=== PATIENT | male | born 2000 | race Caucasian/White ===

== ENCOUNTER 2018-04-25 16:36 | Emergency (ER) | payer MEDICAID ==
[~2018-04-25] VITALS: Ht 185.4 cm; Wt 77.2 kg
[2018-04-25 18:03] LABS: URINE AMPHETAMINE SCREEN NEGATIVE (Neg); URINE BARBITUATE SCREEN NEGATIVE (Neg); URINE BENZODIAZEPINES SCREEN POSITIVE (Neg); URINE CANNABINOID SCREEN NEGATIVE (Neg); URINE COCAINE SCREEN NEGATIVE (Neg); URINE METHADONE SCREEN NEGATIVE (Neg); URINE OPIATE SCREEN NEGATIVE (Neg); URINE PHENCYCLIDINE SCREEN NEGATIVE (Neg)
[2018-04-25 18:14] LABS: BASOPHILS % (AUTO) 0.3 % (0-1); EOSINOPHILS # (AUTO) 0.1 X10'3 (0-0.9); EOSINOPHILS % (AUTO) 1.3 % (0-6); HEMATOCRIT 44.1 % (42.0-52.0); HEMOGLOBIN 15.1 g/dl (14.0-17.9); LYMPHOCYTES # (AUTO) 1.6 X10'3 (1.1-4.8); LYMPHOCYTES % (AUTO) 26.5 % (21-51); MEAN CORPUSCULAR HGB CONC 34.2 % (33.0-36.5); MEAN CORPUSCULAR VOLUME 87.7 FL (78-98); MEAN PLATELET VOLUME 9.3 FL (7.4-10.4); MONOCYTES # (AUTO) 0.5 X10'3 (0-0.9); MONOCYTES % (AUTO) 7.8 % (2-12); NEUTROPHILS # (AUTO) 3.8 X10'3 (1.8-7.7); NEUTROPHILS % (AUTO) 64.1 % (42-75); PLATELET COUNT 208 X10'3 (140-440); RED BLOOD COUNT 5.03 X10'6 (4.70-6.10); RED CELL DISTRIBUTION WIDTH 13.7 % (11.5-14.5)
[2018-04-25 18:34] LABS: ALANINE AMINOTRANSFERASE 40 U/L (12-78); ALBUMIN 4.2 G/DL (3.4-5.0); ALBUMIN/GLOBULIN RATIO 1.1 (1.1-1.5); ALKALINE PHOSPHATASE 138 IU/L (20-180); ANION GAP 9 (8-16); ASPARTATE AMINO TRANSFERASE 34 U/L (10-37); BILIRUBIN,TOTAL 0.3 MG/DL (0.1-1.0); BLOOD UREA NITROGEN 13 MG/DL (7-18); BUN/CREATININE RATIO 14.9 (5.4-32.0); CALCIUM 8.8 MG/DL (8.5-10.1); CHLORIDE 106 MMOL/L (99-107); CREATININE 0.87 MG/DL (0.60-1.10); GLUCOSE 98 MG/DL (70-104); POTASSIUM 4.1 MMOL/L (3.5-5.1); SODIUM 143 MMOL/L (135-145); TOTAL CARBON DIOXIDE 28.1 MMOL/L (24-32); TOTAL PROTEIN 7.9 G/DL (6.4-8.2); eGFR > 90 ML/MIN
[2018-04-25 18:44] LABS: ETHANOL < 0.010 GM/DL (0.0-0.010)
[2018-04-25 19:03] LABS: ACETAMINOPHEN < 2.0 UG/ML (10-30)
[2018-04-25] MEDS ORDERED: OLAN5TAB3 PO (20:11)
[2018-04-25] MEDS ORDERED: ZOL50T PO (20:13)
[2018-04-25] MEDS: OLANZapine 2.5MG tablet PO SCH (21:25)
[2018-04-25] MEDS ORDERED: QUEtiapine 25mg tablet PO ONE (22:10)
[2018-04-26] MEDS: sertraline 50mg tablet PO SCH (08:08)
[2018-04-26] MEDS ORDERED: LORazepam 0.5 MG tablet PO ONE (12:05)
[2018-04-26] MEDS ORDERED: ibuprofen 200mg tablet PO ONE (19:30)
[2018-04-26] MEDS: OLANZapine 2.5MG tablet PO SCH ×2 (21:00→21:02)
[2018-04-27] MEDS: sertraline 50mg tablet PO SCH (08:00)
[2018-04-27] MEDS ORDERED: QUEtiapine 25mg tablet PO ONE (08:45)
[2018-04-27 10:28] LABS: CLARITY,URINE SLIGHTLY CLOUDY (Clear); COLOR,URINE YELLOW (Yellow); GLUCOSE, URINE NEGATIVE (Neg); KETONES,URINE TRACE mg/dl (Neg); LEUKOCYTE ESTERASE ,URINE NEGATIVE (Neg); NITRITES, URINE NEGATIVE (Neg); OCCULT BLOOD,URINE NEGATIVE (Neg); PROTEIN,URINE NEGATIVE (Neg); UROBILINOGEN,URINE 0.2 E.U/dL (0.2-1.0)
[2018-04-27 10:31] LABS: UA COLLECTION TYPE CLN CATCH MIDSTREAM
[2018-04-27 10:37] LABS: BACTERIA,URINE NONE SEEN /HPF (Neg); RBC,URINE NONE SEEN /HPF (0-2)
[2018-04-27 10:38] LABS: MUCUS STRANDS MODERATE /LPF (Neg); SQUAMOUS EPITHELIAL CELL,UR FEW /LPF (FEW)
[2018-04-27] MEDS: OLANZapine 2.5MG tablet PO SCH (19:12)
[2018-04-27] MEDS ORDERED: diphenhydrAMINE 25mg capsule PO ONE (19:20)
[2018-04-27] MEDS ORDERED: OLANZapine 2.5MG tablet PO ONE (20:50)
[2018-04-27 21:55] VITALS: BP 119/84
[2018-04-28] MEDS ORDERED: OLANZapine 2.5MG tablet PO SCH (08:00)
== END 2018-04-27 22:19 ==
LOC: ER 16:36
DX: R45.851 Suicidal ideations (principal); F41.9 Anxiety disorder, unspecified; F32.9 Major depressive disorder, single episode, unspecified; M25.522 Pain in left elbow; F17.200 Nicotine dependence, unspecified, uncomplicated; Z98.890 Other specified postprocedural states
CPT/HCPCS: 36415; 73070; 80053; 80305; 80320; 80329; 81001; 84443; 85025; 87088; 99285; Q0163

== ENCOUNTER 2024-01-12 00:42 | Emergency (ER) | payer MEDICAID ==
[~2024-01-12] VITALS: Ht 185.4 cm; Wt 81.8 kg
[~2024-01-12 00:42] MED LIST: OLAN5TAB3 PO; SERT-153 PO
[2024-01-12 01:38] LABS: BASOPHILS % (AUTO) 0.2 % (0-1); EOSINOPHILS % (AUTO) 0.6 % (0-6); HEMATOCRIT 40.6 % (42.0-52.0); HEMOGLOBIN 13.6 g/dl (14.0-17.9); LYMPHOCYTES # (AUTO) 2.1 X10'3 (1.1-4.8); LYMPHOCYTES % (AUTO) 38.9 % (21-51); MEAN CORPUSCULAR HEMOGLOBIN 32.2 PG (27.0-31.0); MEAN CORPUSCULAR HGB CONC 33.5 g/dL (33.0-36.5); MEAN CORPUSCULAR VOLUME 96.3 FL (78-98); MEAN PLATELET VOLUME 10.4 FL (7.4-10.4); MONOCYTES # (AUTO) 0.5 X10'3 (0-0.9); MONOCYTES % (AUTO) 10.3 % (2-12); NEUTROPHILS # (AUTO) 2.6 X10'3 (1.8-7.7); PLATELET COUNT 140 X10'3 (140-440); RED BLOOD COUNT 4.22 X10'6 (4.70-6.10); RED CELL DISTRIBUTION WIDTH 12.6 % (11.5-14.5); WHITE BLOOD COUNT 5.3 X10'3 (4.5-11.0)
[2024-01-12 01:41] LABS: ALANINE AMINOTRANSFERASE 29 U/L (12-78); ALBUMIN 4.3 G/DL (3.4-5.0); ALBUMIN/GLOBULIN RATIO 1.3 (1.1-1.5); ALKALINE PHOSPHATASE 56 IU/L (46-116); ANION GAP 11 (8-16); ASPARTATE AMINO TRANSFERASE 25 U/L (10-37); BILIRUBIN,TOTAL 0.6 MG/DL (0.1-1.0); BLOOD UREA NITROGEN 18 MG/DL (7-18); CHLORIDE 105 MMOL/L (99-107); ETHANOL < 10 MG/DL (<10); GLUCOSE 101 MG/DL (70-104); POTASSIUM 3.5 MMOL/L (3.5-5.1); SALICYLATE 1.8 MG/DL (4.0-20.0); SODIUM 141 MMOL/L (135-145); TOTAL CARBON DIOXIDE 24.9 MMOL/L (24-32); TOTAL PROTEIN 7.5 G/DL (6.4-8.2); eCRCL 128 ML/MIN; eGFR > 90 ML/MIN
[2024-01-12 01:43] LABS: ACETAMINOPHEN < 2.0 UG/ML (10-30)
[2024-01-12] MEDS: normal saline 1000ml 1,000 ML IV ONE (02:09)
[2024-01-12 06:24] VITALS: BP 124/79; PULSE 82; RESP 14; TEMP 97.8; O2SAT 96
== END 2024-01-12 06:28 | disposition home or self-care (01) ==
LOC: ER 00:42
DX: F19.10 Other psychoactive substance abuse, uncomplicated (principal); F41.9 Anxiety disorder, unspecified; F32.A Depression, unspecified; Z98.890 Other specified postprocedural states; Z79.899 Other long term (current) drug therapy
CPT/HCPCS: 36415; 80053; 80320; 80329; 85025; 93005; 96360; 99285; J7030